=== PATIENT | female | born 1990 | race African-American/Black ===

== ENCOUNTER 2020-06-21 17:41 | Emergency (ER) | payer BC ==
[2020-06-21 18:09] VITALS: BMI 28.8
[2020-06-21 18:29] VITALS: BP 129/64; PULSE 87; TEMP 98.1
== END 2020-06-21 20:38 | disposition home or self-care (01) ==
LOC: JER 17:41
DX: O26.853 Spotting complicating pregnancy, third trimester (principal); Z3A.27 27 weeks gestation of pregnancy
CPT/HCPCS: 76815-TC; 76817-TC; 99281-25

== ENCOUNTER 2021-02-15 10:06 | Emergency (ER) | payer BC ==
[2021-02-15 10:35] VITALS: BP 125/75; PULSE 76; TEMP 97.6; BMI 27.4
[2021-02-16 16:07] LABS: SARS-CoV-2 NAA Detected (Not Detected)
== END 2021-02-15 12:15 | disposition home or self-care (01) ==
LOC: JER 10:06
DX: U07.1 COVID-19 (principal)
CPT/HCPCS: 99283-25; C9803; U0003; U0005